=== PATIENT | male | born 1995 | race Caucasian/White ===

== ENCOUNTER 2018-08-30 09:39 | Day surgery (SDC) | payer OTHER ==
[2018-08-30] MEDS ORDERED: CEFAZOLIN 2 GM/50 ML (PMX) 50 ML IVPB (11:00)
[2018-08-30] MEDS: SOD CHLORIDE 0.9% 1,000 ML IV (11:19)
[2018-08-30] MEDS ORDERED: MIDAZOLAM 1 MG/ML 2 ML INJ (11:54)
[2018-08-30] MEDS ORDERED: PROPOFOL 20 ML (11:54)
[2018-08-30] MEDS ORDERED: NEOSTIGMINE 3 MG/3 ML SYRINGE (11:54)
[2018-08-30] MEDS ORDERED: ONDANSETRON 4 MG INJ (11:54)
[2018-08-30] MEDS ORDERED: DEXAMETHASONE 4 MG/ML 5 ML INJ (11:54)
[2018-08-30] MEDS ORDERED: ROCURONIUM 50 MG INJ (11:54)
[2018-08-30] MEDS ORDERED: GLYCOPYRROLATE 0.4 MG INJ (11:54)
[2018-08-30] MEDS ORDERED: CEFAZOLIN 1 GM INJ (11:54)
[2018-08-30] MEDS ORDERED: FENTAnyl 50 MCG/ML VIAL ×3 (11:54→14:44)
[2018-08-30] MEDS ORDERED: ROPIVACAINE 0.5 % 30 ML VIAL (11:57)
[2018-08-30] MEDS ORDERED: KETOROLAC 30 MG INJ (12:07)
[2018-08-30] MEDS ORDERED: MIDAZOLAM 1 MG/ML 2 ML INJ IV (14:30)
[2018-08-30] MEDS ORDERED: MEPERIDINE 25 MG INJ IV (14:30)
[2018-08-30] MEDS ORDERED: ALBUTEROL 0.083% (NEB) 2.5 MG/3 ML AMP HHN (14:30)
[2018-08-30] MEDS ORDERED: hydrALAzine 20 MG INJ IV (14:30)
[2018-08-30] MEDS ORDERED: HYDROmorphONE 1 MG/5 ML IV SYRINGE IV ×2 (14:30)
[2018-08-30] MEDS ORDERED: IPRATROPIUM (NEB) 0.5 MG/2.5 ML AMP HHN (14:30)
[2018-08-30] MEDS ORDERED: OXYCODONE/ACETAMINOPHEN (5/325) TAB PO (14:30)
[2018-08-30] MEDS ORDERED: TRIMETHOBENZAMIDE 100 MG/ML VIAL IM (14:30)
[2018-08-30] MEDS ORDERED: LABETALOL HCL 20MG INJ IV (14:30)
[2018-08-30] MEDS ORDERED: DIPHENHYDRAMINE 50 MG INJ IV (14:30)
[2018-08-30] MEDS ORDERED: FENTAnyl 50 MCG/ML VIAL IV ×2 (14:30)
[2018-08-30] MEDS ORDERED: ONDANSETRON 4 MG INJ IV (14:30)
[2018-08-30] MEDS ORDERED: EPHEDrine 25 MG/5 ML SYG IV (14:30)
[2018-08-30] MEDS: HYDROmorphONE 1 MG/5 ML IV SYRINGE IV (15:28)
[2018-08-30] MEDS: FENTAnyl 50 MCG/ML VIAL IV (15:43)
[2018-08-30] MEDS: HYDROCODONE/APAP (5/325) TAB PO (15:59)
[2018-08-30] MEDS: OXYCODONE/ACETAMINOPHEN (5/325) TAB PO (17:07)
== END 2018-08-30 17:57 | disposition home or self-care (01) ==
LOC: SDS 09:39
DX: K80.10 Calculus of gallbladder with chronic cholecystitis without obstruction (principal)
CPT/HCPCS: 47562; 88304